=== PATIENT | female | born 1955 | race Caucasian/White ===

== ENCOUNTER 2017-11-19 10:46 | Inpatient (IN) | payer MEDICAID ==
[~2017-11-19] VITALS: Ht 157.5 cm; Wt 72.2 kg
[~2017-11-19 10:46] MED LIST: AMLO5CAP40 PO; AMLODIPINE; CARI-277 PO; CLON05T PO; HYDR-3546 OR; HYDROCODONE; KEFLEX; LITH300T5 PO; METF-370 PO; PRAVASTATIN PO; [UNRECOGNIZED DRUG - OTHER] PO
[2017-11-19] MEDS ORDERED: cloNIDine HCL 0.1 MG TAB ONE (11:18)
[2017-11-19] MEDS ORDERED: cloNIDine HCL 0.1 MG TAB PO ONE (11:30)
[2017-11-19 11:59] LABS: Basophils # (auto) 0.1 uL; Basophils % (auto) 0.7 % (0.0-2.0); Eosinophils # (auto) 0.3 uL; Eosinophils % (auto) 2.5 % (0.0-7.0); Hematocrit 41.4 % (36.0-46.0); Hemoglobin 13.6 g/dL (12.2-16.2); Lymphocytes # (auto) 2.2 uL; Lymphocytes % (auto) 17.9 % (10.0-50.0); Mean Corpuscular Hemoglobin 31.8 pg (28.0-32.0); Mean Corpuscular Volume 96.6 fL (80.0-100.0); Monocytes # (auto) 0.9 uL; Monocytes % (auto) 7.1 % (0.0-12.0); Neutrophils % (auto) 71.8 % (37.0-80.0); Platelet Count (auto) 350 10^3/uL (140-450); Red Blood Cells 4.29 10^6/uL (4.0-5.20); Red Cell Distribution Width 14.1 % (11.8-14.3); White Blood Cell 12.4 10^3/uL (4.4-10.8)
[2017-11-19 12:21] LABS: Alanine Aminotransferase 16 U/L (13-56); Albumin 3.5 g/dL (3.4-5.0); Alkaline Phosphatase 62 U/L (45-117); Anion Gap 8 (5-15); Aspartate Aminotransferase 12 U/L (15-37); BUN/Creatinine Ratio 21.6; Bilirubin, Total 0.3 mg/dL (0.2-1.0); Blood Urea Nitrogen 43 mg/dL (7-18); Calcium 9.4 mg/dL (8.5-10.1); Carbon Dioxide 24 mmol/L (21-32); Chloride 106 mmol/L (98-107); GFR African American 33 mL/min; GFR Non-African American 27 mL/min; Glucose 79 mg/dL (74-106); Lipase 2028 U/L (73-393); Potassium 4.9 mmol/L (3.5-5.1); Sodium 138 mmol/L (136-145); Total Protein 7.3 g/dL (6.4-8.2)
[2017-11-19 12:37] LABS: INR 0.95 (0.9-1.15); Partial Thromboplastin Time 27.7 sec (22.64-33.71); Prothrombin Time 10.3 sec (9.37-12.3)
[2017-11-19] MEDS ORDERED: SODIUM CHLORIDE 0.9% 1,000 ML IV ONE ×2 (15:36)
[2017-11-19] MEDS ORDERED: PIPERACILLIN-TAZOB 3.375GM 50 ML IV ONE (15:45)
[2017-11-19 16:34] LABS: INR 0.93 (0.9-1.15); Partial Thromboplastin Time 26.8 sec (22.64-33.71); Prothrombin Time 10.1 sec (9.37-12.3)
[2017-11-19] MEDS ORDERED: TEMAZEPAM 15 MG CAP PO PRN (18:00)
[2017-11-19] MEDS ORDERED: MORPHINE SULF INJ 2 MG/ML SYRINGE 1ML IV PRN (18:00)
[2017-11-19] MEDS ORDERED: clonazePAM 0.5 MG TAB PO PRN (18:00)
[2017-11-19] MEDS ORDERED: DOCUSATE SOD 100 MG CAP PO PRN (18:00)
[2017-11-19] MEDS: SODIUM CHLORIDE 0.9% 1,000 ML IV SCH ×2 (18:00→22:06)
[2017-11-19] MEDS ORDERED: NITROGLYCERIN 0.4 MG SL TAB SL PRN (18:00)
[2017-11-19] MEDS ORDERED: ACETAMINOPHEN 325 MG TAB PO PRN (18:00)
[2017-11-19] MEDS ORDERED: amLODIPine BESYLATE 5 MG TAB PO ONE (18:15)
[2017-11-19] MEDS ORDERED: DEXTROSE (50%) 50ML SYRG IV PRN (18:15)
[2017-11-19] MEDS ORDERED: BENAZEPRIL HCL 10 MG TAB PO ONE (18:15)
[2017-11-19] MEDS: ONDANSETRON HCL 4 MG/2 ML VIAL IV PRN (20:09)
[2017-11-19] MEDS: cloNIDine HCL 0.1 MG TAB PO PRN ×2 (20:09→23:58)
[2017-11-19 20:44] LABS: Urine Bacteria NONE SEEN /hpf (None Seen); Urine Blood Negative /uL (Negative); Urine Specific Gravity 1.009 (1.001-1.035); Urine WBC 1 /hpf (0 - 5)
[2017-11-19] MEDS: MORPHINE SULF INJ 2 MG/ML SYRINGE 1ML IV PRN (20:52)
[2017-11-19] MEDS: InsuLIN REG 1unit/0.01ml Soln (100units/ml) SC SCH (22:00)
[2017-11-19] MEDS: ACCU-CHEK COMFORT CURVE STRIP VI SCH (22:09)
[2017-11-19] MEDS: FAMOTIDINE 20 MG TAB PO SCH (22:14)
[2017-11-19 22:45] VITALS: BP 193/93
[2017-11-20 01:15] VITALS: BP 162/92
[2017-11-20 05:00] VITALS: BP 158/105
[2017-11-20] MEDS: ONDANSETRON HCL 4 MG/2 ML VIAL IV PRN ×3 (05:00→14:24)
[2017-11-20] MEDS: MORPHINE SULF INJ 2 MG/ML SYRINGE 1ML IV PRN ×4 (05:01→19:40)
[2017-11-20 05:34] LABS: Basophils # (auto) 0.1 uL; Basophils % (auto) 0.9 % (0.0-2.0); Eosinophils # (auto) 0.5 uL; Hemoglobin 12.4 g/dL (12.2-16.2); Lymphocytes # (auto) 3.2 uL; Lymphocytes % (auto) 27.1 % (10.0-50.0); Mean Corpuscular Hemoglobin 31.8 pg (28.0-32.0); Mean Corpuscular Hgb Conc. 32.6 g/dL (32.0-36.0); Mean Corpuscular Volume 97.6 fL (80.0-100.0); Monocytes % (auto) 8.6 % (0.0-12.0); Neutrophils # (auto) 6.9 uL; Neutrophils % (auto) 59.4 % (37.0-80.0); Nucleated Red Blood Cells % 0.1 %; Platelet Count (auto) 306 10^3/uL (140-450); Red Blood Cells 3.89 10^6/uL (4.0-5.20); Red Cell Distribution Width 13.8 % (11.8-14.3); White Blood Cell 11.7 10^3/uL (4.4-10.8)
[2017-11-20 05:49] LABS: Albumin 2.7 g/dL (3.4-5.0); BUN/Creatinine Ratio 22.8; Calcium 8.4 mg/dL (8.5-10.1); Potassium 4.6 mmol/L (3.5-5.1)
[2017-11-20 06:00] LABS: Bilirubin, Total 0.3 mg/dL (0.2-1.0)
[2017-11-20] MEDS: ACCU-CHEK COMFORT CURVE STRIP VI SCH ×3 (06:31→17:04)
[2017-11-20] MEDS: InsuLIN REG 1unit/0.01ml Soln (100units/ml) SC SCH ×2 (06:31→17:00)
[2017-11-20 09:00] VITALS: BP 167/95
[2017-11-20] MEDS: MULTIPLE VITAMIN TAB PO SCH (09:34)
[2017-11-20] MEDS: amLODIPine BESYLATE 5 MG TAB PO SCH (09:35)
[2017-11-20] MEDS: BENAZEPRIL HCL 10 MG TAB PO SCH (09:36)
[2017-11-20] MEDS: SODIUM CHLORIDE 0.9% 1,000 ML IV SCH ×2 (11:24→18:27)
[2017-11-20] MEDS ORDERED: DEXTROSE (50%) 50ML SYRG IV PRN (12:15)
[2017-11-20] MEDS ORDERED: LORazepam 2MG/ML-1ML VIAL IV ONE (12:15)
[2017-11-20 13:00] VITALS: BP 154/84
[2017-11-20 17:00] VITALS: BP 142/84
[2017-11-20] MEDS: HYDROcodone-ACET 5/325MG TAB PO PRN (17:07)
[2017-11-20] MEDS: FAMOTIDINE 20 MG TAB PO SCH (21:22)
[2017-11-20 22:33] VITALS: BP 154/85
[2017-11-21] MEDS: MORPHINE SULF INJ 2 MG/ML SYRINGE 1ML IV PRN ×6 (00:01→22:02)
[2017-11-21] MEDS: SODIUM CHLORIDE 0.9% 1,000 ML IV SCH ×3 (03:40→22:00)
[2017-11-21] MEDS: ONDANSETRON HCL 4 MG/2 ML VIAL IV PRN ×3 (04:00→12:41)
[2017-11-21 04:18] VITALS: BP 181/92
[2017-11-21] MEDS: ACCU-CHEK COMFORT CURVE STRIP VI SCH ×2 (06:19→17:00)
[2017-11-21] MEDS: InsuLIN REG 1unit/0.01ml Soln (100units/ml) SC SCH ×2 (06:19→17:00)
[2017-11-21 08:00] VITALS: BP_SYST 167; BP_SYST 181; BP_DIAS 104; BP_DIAS 92
[2017-11-21] MEDS: BENAZEPRIL HCL 10 MG TAB PO SCH (09:59)
[2017-11-21] MEDS: amLODIPine BESYLATE 5 MG TAB PO SCH (09:59)
[2017-11-21] MEDS: MULTIPLE VITAMIN TAB PO SCH (10:00)
[2017-11-21 10:56] LABS: Potassium 4.3 mmol/L (3.5-5.1)
[2017-11-21 10:57] LABS: Albumin 3.2 g/dL (3.4-5.0); BUN/Creatinine Ratio 14.9; Bilirubin, Total 0.1 mg/dL (0.2-1.0); Calcium 8.9 mg/dL (8.5-10.1); Total Protein 7.2 g/dL (6.4-8.2)
[2017-11-21 11:54] VITALS: BP 202/112
[2017-11-21] MEDS ORDERED: LABETALOL HCL 5 MG/ML ML 20ML VIAL IV PRN (12:00)
[2017-11-21] MEDS ORDERED: LABETALOL HCL 5 MG/ML ML 20ML VIAL IV ONE ×2 (12:00→12:20)
[2017-11-21 14:13] VITALS: BP 176/100
[2017-11-21 16:35] VITALS: BP 151/83
[2017-11-21] MEDS: HYDROcodone-ACET 5/325MG TAB PO PRN (20:44)
[2017-11-21] MEDS: FAMOTIDINE 20 MG TAB PO SCH (22:01)
[2017-11-21 22:17] VITALS: BP 156/100
[2017-11-22 04:23] VITALS: BP 195/99
[2017-11-22 06:10] LABS: Calcium 8.8 mg/dL (8.5-10.1); Potassium 4.4 mmol/L (3.5-5.1)
[2017-11-22 06:12] LABS: BUN/Creatinine Ratio 12.7
[2017-11-22] MEDS: InsuLIN REG 1unit/0.01ml Soln (100units/ml) SC SCH (06:16)
[2017-11-22] MEDS: ACCU-CHEK COMFORT CURVE STRIP VI SCH (06:16)
[2017-11-22] MEDS: MORPHINE SULF INJ 2 MG/ML SYRINGE 1ML IV PRN (06:25)
[2017-11-22 07:59] VITALS: BP 166/89
[2017-11-22 08:08] VITALS: BP 166/89
[2017-11-22] MEDS: SODIUM CHLORIDE 0.9% 1,000 ML IV SCH (09:45)
[2017-11-22] MEDS ORDERED: BENAZEPRIL HCL 10 MG TAB PO SCH (10:00)
[2017-11-22] MEDS ORDERED: amLODIPine BESYLATE 5 MG TAB PO SCH (10:00)
[2017-11-22] MEDS ORDERED: BEN10T PO (10:22)
[2017-11-22] MEDS ORDERED: AML5T PO (10:22)
[2017-11-22] MEDS: MULTIPLE VITAMIN TAB PO SCH (10:34)
[2017-11-22] MEDS: HYDROcodone-ACET 5/325MG TAB PO PRN (10:39)
[2017-11-22] MEDS ORDERED: ASPI81CH43 PO (10:40)
[2017-11-22] MEDS ORDERED: NICOTINE 21MG/24 HR TOPICAL PATCH TD ONE (10:45)
[2017-11-22 12:47] VITALS: BP 166/89
[2017-11-22 13:14] VITALS: BP 162/83
== END 2017-11-22 15:00 | disposition home or self-care (01) | DRG 282 ==
LOC: ER 10:46 → TELE 10:47 → TELE-CENTR 22:48
PROVIDERS: ADMIT Internal Medicine; ATTEND Internal Medicine
DX: K85.90 Acute pancreatitis without necrosis or infection, unspecified (principal); N17.0 Acute kidney failure with tubular necrosis; N18.4 Chronic kidney disease, stage 4 (severe); E11.21 Type 2 diabetes mellitus with diabetic nephropathy; E11.22 Type 2 diabetes mellitus with diabetic chronic kidney disease; F41.9 Anxiety disorder, unspecified; F17.210 Nicotine dependence, cigarettes, uncomplicated; E78.5 Hyperlipidemia, unspecified; I12.9 Hypertensive chronic kidney disease with stage 1 through stage 4 chronic kidney disease, or unspecified chronic kidney disease; I25.10 Atherosclerotic heart disease of native coronary artery without angina pectoris; G89.29 Other chronic pain; E86.0 Dehydration; F31.9 Bipolar disorder, unspecified; K86.1 Other chronic pancreatitis; M19.90 Unspecified osteoarthritis, unspecified site; E44.0 Moderate protein-calorie malnutrition; Z68.29 Body mass index [BMI] 29.0-29.9, adult; I25.2 Old myocardial infarction; Z88.8 Allergy status to other drugs, medicaments and biological substances; Z88.5 Allergy status to narcotic agent; Z83.3 Family history of diabetes mellitus
CPT/HCPCS: 36415; 51702; 71045; 74176; 74181; 76705; 80048; 80053; 81001; 82150; 82962; 83036; 83605; 83690; 84484; 85025; 85610; 85730; 87040; 87081; 87086; 96365; J2405; J2543